=== PATIENT | male | born 1970 | race Caucasian/White ===

== ENCOUNTER → 2022-05-14 | Outpatient (CLI) | payer OTHER | END | disposition home or self-care (01) | LOC: WOUNDCARE 10:21 | PROVIDERS: ATTEND Nurse Practitioner Family | DX: L97.822 Non-pressure chronic ulcer of other part of left lower leg with fat layer exposed (principal); L97.812 Non-pressure chronic ulcer of other part of right lower leg with fat layer exposed; I73.9 Peripheral vascular disease, unspecified; I89.0 Lymphedema, not elsewhere classified; I10 Essential (primary) hypertension; I25.2 Old myocardial infarction; G47.30 Sleep apnea, unspecified; Z87.891 Personal history of nicotine dependence; Z95.818 Presence of other cardiac implants and grafts ==